=== PATIENT | female | born 1990 | race African-American/Black ===

== ENCOUNTER 2021-01-24 11:24 | Emergency (ER) | payer BC, MEDICAID ==
[~2021-01-24] VITALS: Ht 157.5 cm; Wt 86.2 kg
[~2021-01-24 11:24] MED LIST: NORPTMEDS CO
[2021-01-24 13:28] VITALS: BP 143/73
[2021-01-24 14:29] LABS: Basophils # (auto) 0.1 10 ^3/uL (0-0.2); Eosinophils # (auto) 0.4 10 ^3/uL (0-0.8); Mean Corpuscular Volume 78.1 fL (80.0-100.0); Monocytes # (auto) 0.7 10 ^3/uL (0-1.3); Neutrophils # (auto) 2.9 10 ^3/uL (1.6-8.6); Nucleated Red Blood Cells % 0.2 %
[2021-01-24 14:31] LABS: Eosinophils % (auto) 5.6 % (0.0-7.0); Hematocrit 41.8 % (36.0-46.0); Hemoglobin 14.1 g/dL (12.2-16.2); Lymphocytes # (auto) 3.5 10 ^3/uL (0.4-5.4); Lymphocytes % (auto) 45.7 % (10.0-50.0); Mean Corpuscular Hemoglobin 26.3 pg (28.0-32.0); Mean Corpuscular Hgb Conc. 33.6 g/dL (32.0-36.0); Neutrophils % (auto) 38.7 % (37.0-80.0); Platelet Count (auto) 343 10^3/uL (140-450); Red Blood Cells 5.36 10^6/uL (4.0-5.20); Red Cell Distribution Width 16.5 % (11.8-14.3); White Blood Cell 7.6 10^3/uL (4.4-10.8)
[2021-01-24 14:41] LABS: BUN/Creatinine Ratio 6.7; Calcium 8.9 mg/dL (8.5-10.1); Potassium 3.9 mmol/L (3.5-5.1)
[2021-01-24] MEDS ORDERED: cefTRIAXone 1GM/50ML D5W 50 ML IV ONE (15:15)
== END 2021-01-24 15:56 | disposition home or self-care (01) ==
LOC: ER 11:24
DX: H10.31 Unspecified acute conjunctivitis, right eye (principal); C69.50 Malignant neoplasm of unspecified lacrimal gland and duct; Z88.0 Allergy status to penicillin; Z88.1 Allergy status to other antibiotic agents
CPT/HCPCS: 36415; 70486; 80048; 85025; 85049; 96365; 99284; J0696